=== PATIENT | male | born 1950 | race Caucasian/White ===

== ENCOUNTER 2021-07-26 16:23 | Observation (INO) ==
--- NOTE | 2021-07-26 17:08 | DR.ABDMALE ---
HPI Time seen Time Seen by Provider: 07/26/21 16:42 PCP Primary Care Physician: ELISE Dye HPI comment HPI Comment: According to pt he was well before 2 days ago. experienced pain in the whole belly intermittent .thinks it may have started after drinking punch .pain associated with nausea and vomiting with mild diarrhea non bloody .pt thinks its getting worse. No one at home right now as patients brother who use to live with him has recently . Pt does take opioids for chronic pain .recently switched to oxycodone IR Complaint Chief Complaint Doctors Comments: ABDOMINAL PAIN Chief Complaint:: PT REPORTS THAT HE IS HAVING RUQ PAIN SINCE YESTERDAY WHEN HE DRANK SOME ORANGE GravitantAN PUNCH , ( SHARP PAINS INTERMITTANTLY ) PT REPORT HAVING SOME VOMITING AND BEING UNABLE TO HOLD ANY THING DOWN,BR Self Treatment fo Chief Complaint: NONE COVID-19 Coronavirus risk:travel/contact w/high risk person: No Has patient experienced Coronavirus symptoms: No Reviewed Nurses Notes Review: Yes Mode of arrival Mode of Arrival: Ambulatory Timing Onset of Chief Complaint: 07/25/21 Came on: Gradually Duration Duration: Since Onset Duration: Days Location Location: Diffuse Severity Severity: Moderate Quality Quality: Aching Context Onset: Gradually Modifying factors Worsening Factors: Nothing Improving Factors: Nothing Associated signs and symptoms Associated Signs and Symptoms: Nausea, Vomiting and Diarrhea PMH PMH Past Medical History: Yes Past Medical History: Diabetes and Hypertension Past Surgical History: Yes Surgical History: Angioplasty/Stents and CABG/Valve Surgery Family History History of Family Medical Conditions: No Social History Does patient currently use any type of tobacco product: No Have you used tobacco products in the last 12 months: No Type of Tobacco Use: None Does any household member use tobacco: No Alcohol Use: None Lives With: Family Lives Where: Home Travel Risk Coronavirus risk:travel/contact w/high risk person: No Has patient experienced Coronavirus symptoms: No Infectious screening In the last 2 months have you had wt loss of >10#?: NO Have you had fever, night sweats or hemotysis?: No Have you traveled outside the country in the last 6 months?: No Isolation: Standard ROS Review of Systems Constitutional: No Symptoms Reported Eyes: No Symptoms Reported ENTM: No Symptoms Reported Cardiovascular: No Symptoms Reported Gastrointestinal/Abdominal: See HPI Genitourinary: No Symptoms Reported Neurological: No Symptoms Reported Musculoskeletal: No Symptoms Reported Integumentary: No Symptoms Reported PE Vital Signs Vital Signs: Temp Pulse Resp BP Pulse Ox 07/26/21 18:07 162/74 07/26/21 16:28 98.7 F 72 22 193/93 97 General Limitations: No Limitations Head Head Exam: Normal Inspection, Atraumatic and Normocephalic Eyes Eye exam: Normal Appearance, PERRL and EOMI ENT ENT Exam: Mucous Membranes Moist Neck Neck Exam: Normal Inspection Respiratory Respiratory Exam: Normal Lung Sounds Bilat Respiratory Exam: Bilateral: Clear to Auscultation Cardiovascular Cardiovascular Exam: +S1 and +S2 Abdominal Exam Abdominal Exam: Normal Bowel Sounds, Soft, Tenderness and Other (dull to percuss ) Abdominal Tenderness: Diffuse Rectal Rectal Exam: Deferred Extremeties Extremities Exam: Normal Inspection and Full ROM Skin Skin Exam: Normal Color MDM Differential Diagnosis Differential Diagnosis: Cholelethiasis, Constipation, Diverticular disease, Gastroenteritis and Pancreatitis Other differential diagnosis: abdominal pain COURSE Treatment Treatment: cab ,cmp ,acute abdomen series Consultation Consultation Comments: labs and ct of abdomen and pelvis discussed with surgery .Agreed to admit patient .start zosyn ,fluid ,NPO,blood sugar management and bp spoke with Dr Adams pt will be admitted under his service with surgery on consult ROR Labs Reviewed Laboratory Results Reviewed?: Yes Result Diagrams: 07/26/21 17:05 07/26/21 17:05 Laboratory: WBC 12.7 X10^3/uL (3.6-10.0) H 07/26/21 17:05 RBC 4.92 X10^6/uL (4.7-6.0) 07/26/21 17:05 Hgb 14.7 g/dL (13.5-18.0) 07/26/21 17:05 Hct 44.5 % (42.0-54.0) 07/26/21 17:05 MCV 90.3 fL (80.0-100.0) 07/26/21 17:05 MCH 29.8 pg (27.0-34.0) 07/26/21 17:05 MCHC 33.0 g/dL (33.0-35.0) 07/26/21 17:05 RDW 16.2 % (11.6-16.5) 07/26/21 17:05 Plt Count 109 X10^3/uL (150.0-450.0) L 07/26/21 17:05 Plt Count Comment Decreased (ADEQUATE) 07/26/21 17:05 MPV 9.5 fL (7.4-11.0) 07/26/21 17:05 Neut % (Auto) 95.0 % (42.0-75.0) H 07/26/21 17:05 Lymph % (Auto) 1.9 % (21.0-51.0) L 07/26/21 17:05 [place] % (Auto) 2.6 % (0.0-13.0) 07/26/21 17:05 Eos % (Auto) 0.1 % (0.9-2.9) L 07/26/21 17:05 Baso % (Auto) 0.4 % (0.2-1.0) 07/26/21 17:05 Neut # (Auto) 12.1 x10^3/uL (2.2-4.8) H 07/26/21 17:05 Lymph # (Auto) 0.2 X10^3/uL (1.3-2.9) L 07/26/21 17:05 [place] # (Auto) 0.3 x10^3/uL (0.3-0.8) 07/26/21 17:05 Eos # (Auto) 0.0 x10^3/uL (0.0-0.2) 07/26/21 17:05 Baso # (Auto) 0.0 X10^3/uL (0.0-0.1) 07/26/21 17:05 Absolute Nucleated RBC 0.0 /100WBC 07/26/21 17:05 Total Counted 100 07/26/21 17:05 Neutrophils % (Manual) 86 % (39-76) H 07/26/21 17:05 Band Neutrophils % 3 % (0-10) 07/26/21 17:05 Lymphocytes % (Manual) 4 % (13-43) L 07/26/21 17:05 Monocytes % (Manual) 5 % (4-9) 07/26/21 17:05 Metamyelocytes % 2 07/26/21 17:05 Plt Morphology Comment Normal (NORMAL) 07/26/21 17:05 RBC Morphology Abnormal (NORMAL) 07/26/21 17:05 Anisocytosis Slight A 07/26/21 17:05 Sodium 131 mmol/L (136-145) L 07/26/21 17:05 Corrected Sodium 142 mmol/L (136-145) 07/26/21 17:05 Potassium 4.1 mmol/L (3.5-5.1) 07/26/21 17:05 Chloride 89 mmol/L (98-107) L 07/26/21 17:05 Carbon Dioxide 30.2 mmol/L (21-32) 07/26/21 17:05 BUN 22 mg/dL (7-18) H 07/26/21 17:05 Creatinine 1.78 mg/dL (0.70-1.30) H 07/26/21 17:05 Est GFR (MDRD) Af Amer 49 (>60) L 07/26/21 17:05 Est GFR (MDRD) Non-Af 40 (>60) L 07/26/21 17:05 Glucose 570 mg/dL (65-99) H* 07/26/21 17:05 Calcium 9.2 mg/dL (8.5-10.1) 07/26/21 17:05 Corrected Calcium TNP 07/26/21 17:05 Total Bilirubin 5.50 mg/dL (0.2-1.0) H 07/26/21 17:05 Direct Bilirubin 4.70 mg/dL (0-0.2) H 07/26/21 17:05 AST 483 Units/L (15-37) H 07/26/21 17:05 ALT 493 Units/L (12-78) H 07/26/21 17:05 Alkaline Phosphatase 516 Units/L (46-116) H 07/26/21 17:05 Total Protein 7.4 g/dL (6.4-8.2) 07/26/21 17:05 Albumin 3.7 g/dL (3.4-5.0) 07/26/21 17:05 Globulin 3.7 g/dL (2.5-4.5) 07/26/21 17:05 Albumin/Globulin Ratio 1.0 Ratio (1.1-2.1) L 07/26/21 17:05 Amylase 610 Units/L (25-115) H 07/26/21 17:05 Lipase 2987 Units/L (73-393) H 07/26/21 17:05 SARS CoV-2 RNA Rapid YULIANA Negative (NEGATIVE) 07/26/21 17:53 Opioid Opioid Risk Tool Age (Evaristo box if 16-45): No History of Preadolescent Sexual Abuse: No Total: 0 Total Score Risk Category: Low Risk Copyright: Zain ALVES predicting aberrant behaviors Diagnosis Discharge Problem: Acute gallstone pancreatitis, Abnormal LFTs, Ascending cholangitis Cholelithiasis Qualifiers: Cholelithiasis location: gallbladder Cholecystitis presence: with cholecystitis Cholecystitis acuity: acute Biliary obstruction: without biliary obstruction Qualified Code(s): K80.00 - Calculus of gallbladder with acute cholecystitis without obstruction HTN (hypertension) Qualifiers: Hypertension type: primary hypertension Qualified Code(s): I10 - Essential (primary) hypertension DM (diabetes mellitus), type 2, uncontrolled Qualifiers: Glycemic state: with hyperglycemia Qualified Code(s): E11.65 - Type 2 diabetes mellitus with hyperglycemia Instructions Forms: [facility] Social Distancing
[2021-07-26 17:12] LABS: BASOPHILS % (AUTO) 0.4 % (0.2-1.0); EOSINOPHILS % (AUTO) 0.1 % (0.9-2.9); HEMATOCRIT 44.5 % (42.0-54.0); HEMOGLOBIN 14.7 g/dL (13.5-18.0); LYMPHOCYTES # (AUTO) 0.2 X10^3/uL (1.3-2.9); LYMPHOCYTES % (AUTO) 1.9 % (21.0-51.0); MEAN CORPUSCULAR HEMOGLOBIN 29.8 pg (27.0-34.0); MEAN CORPUSCULAR VOLUME 90.3 fL (80.0-100.0); MEAN PLATELET VOLUME 9.5 fL (7.4-11.0); MONOCYTES # (AUTO) 0.3 x10^3/uL (0.3-0.8); MONOCYTES % (AUTO) 2.6 % (0.0-13.0); NEUTROPHILS # (AUTO) 12.1 x10^3/uL (2.2-4.8); PLATELET COUNT 109 X10^3/uL (150.0-450.0); RED BLOOD COUNT 4.92 X10^6/uL (4.7-6.0); RED CELL DISTRIBUTION WIDTH 16.2 % (11.6-16.5); WHITE BLOOD COUNT 12.7 X10^3/uL (3.6-10.0)
--- NOTE | 2021-07-26 17:26 | RAD ---
HISTORYRUQ PAINSTUDYACUTE ABDOMEN SERIESCOMPARISONNoneFINDINGSAccounting for AP technique and low lung volumes, the cardiac silhouette is enlarged without definite evidence of congestive failure. Previous CABG noted. There are left basilar retrocardiac opacities, which obscure the left hemidiaphragm. Remainder of the lungs are hypoinflated but grossly clear. There is no significant pleural effusion or pneumothorax.The visualized bowel gas pattern is nonobstructive. No definite free air or pneumatosis is identified. No pathologic calcifications seen. Imaged osseous structures are grossly intact.IMPRESSIONCardiomegaly without CHF.Hyperinflation of the lungs and left basilar opacities, which could reflect either atelectasis or pneumonia. Correlate clinically.Nonobstructive bowel gas pattern.Electronically signed by: BRENNEN NGUYỄN (Jul 26, 2021 17:24:53)
[2021-07-26 17:29] LABS: ALANINE AMINOTRANSFERASE 493 Units/L (12-78); ALBUMIN 3.7 g/dL (3.4-5.0); ALKALINE PHOSPHATASE 516 Units/L (46-116); ASPARTATE AMINO TRANSFERASE 483 Units/L (15-37); BLOOD UREA NITROGEN 22 mg/dL (7-18); CALCIUM 9.2 mg/dL (8.5-10.1); CARBON DIOXIDE 30.2 mmol/L (21-32); CHLORIDE 89 mmol/L (98-107); CREATININE 1.78 mg/dL (0.70-1.30); SODIUM 131 mmol/L (136-145); TOTAL PROTEIN 7.4 g/dL (6.4-8.2); eGFR NON BLACK RACES 40 (>60)
[2021-07-26 17:30] LABS: ANISOCYTOSIS SLIGHT; BAND NEUTROPHILS % 3 % (0-10); METAMYELOCYTES % 2; PLATELET MORPHOLOGY COMMENT NORMAL (NORMAL)
[2021-07-26 17:33] LABS: COR NA(FOR HYPERGLY) 142 mmol/L (136-145)
[2021-07-26] MEDS ORDERED: NovoLIN R (or HumuLIN R) SUBCUT STA (17:44)
[2021-07-26 17:46] LABS: AMYLASE 610 Units/L (25-115)
[2021-07-26] MEDS ORDERED: NS 1,000 ML IV 1,000 ML ONE ×2 (17:49→20:51)
[2021-07-26] MEDS ORDERED: NS 1,000 ML IV 1,000 ML IV ONE (17:49)
[2021-07-26] MEDS ORDERED: NovoLIN R (or HumuLIN R) ONE (17:51)
[2021-07-26 18:02] LABS: LIPASE 2987 Units/L (73-393)
--- NOTE | 2021-07-26 19:26 | CT ---
HISTORYELEVATED LIVER ENZYMESSTUDYABDOMEN/PELVIS WITH CONCOMPARISONNoneTECHNIQUEAxial CT images of the abdomen and pelvis were obtained after the administration of IV contrast, 75 mL Omnipaque 350, and reformatted into coronal and sagittal planes for further evaluation.Radiation dose: 844.90 mGy-cm total DLPFINDINGSLung bases are clear.Stomach appears normal.Solid visceral organs of the upper abdomen are unremarkable.Calcified and noncalcified gallstones with mild edema adjacent to the gallbladder wall.No intra or extrahepatic biliary dilatation. Mild enhancement of the extrahepatic biliary ducts.Atherosclerotic changes to the abdominal aorta and iliac vessels without aneurysm.Homogeneous enhancement of the kidneys without hydronephrosis or hydroureter.Unremarkable appearance of the urinary bladder.Imaged reproductive structures are unremarkable.Unremarkable appearance of the large and small bowel.No evidence of acute appendicitis.No pneumoperitoneum.No significant fluid collection.No adenopathy.No acute osseous abnormality.Mild multilevel degenerative disc disease without vertebral body height loss.IMPRESSION1. Gallstones in the gallbladder with mild edema along the margins of the gallbladder wall. Findings could represent cholecystitis.2. Mild nonspecific wall thickening and enhancement of the nondilated extrahepatic biliary ducts. Correlate for signs/symptoms of an ascending biliary tract infection. No choledocholithiasis.Electronically signed by: Timmy Lopes (Jul 26, 2021 19:25:22)
[2021-07-26] MEDS ORDERED: ZOSYN VIAL 3.375 GRAMS 3.375 G in NS 100 ML IV + SPIKE MINIBAG* 100 ML IV STA (20:50)
[2021-07-26] MEDS: NS 1,000 ML IV 1,000 ML IV SCH (20:50)
[2021-07-26] MEDS ORDERED: ZOSYN VIAL 3.375 GRAMS IV ONE (20:53)
[2021-07-26] MEDS ORDERED: NS 100 ML IV + SPIKE MINIBAG* 100 ML IV ONE (20:53)
[2021-07-26] MEDS ORDERED: NORVASC TAB 5 MG ONE (21:58)
[2021-07-26] MEDS: NORVASC TAB 10 MG PO SCH (22:03)
[2021-07-26] MEDS ORDERED: NORVASC TAB 10 MG PO SCH (22:13)
[2021-07-26] MEDS ORDERED: NS 1,000 ML IV 1,000 ML IV SCH (22:13)
[2021-07-26] MEDS ORDERED: NovoLIN R (or HumuLIN R) SC PRN (22:13)
[2021-07-27 02:29] VITALS: BMI 28.6
[2021-07-27] MEDS ORDERED: ZOSYN VIAL 3.375 GRAMS IV ONE (04:49)
[2021-07-27] MEDS ORDERED: NS 100 ML IV + SPIKE MINIBAG* 100 ML IV ONE (04:50)
[2021-07-27] MEDS: NS 1,000 ML IV 1,000 ML IV SCH (05:00)
[2021-07-27] MEDS ORDERED: ZOSYN VIAL 3.375 GRAMS 3.375 G in NS 100 ML IV + SPIKE MINIBAG* 100 ML IV SCH (06:00)
[2021-07-27 06:34] LABS: BASOPHILS % (AUTO) 0.4 % (0.2-1.0); EOSINOPHILS # (AUTO) 0.1 x10^3/uL (0.0-0.2); EOSINOPHILS % (AUTO) 1.6 % (0.9-2.9); HEMATOCRIT 36.2 % (42.0-54.0); LYMPHOCYTES # (AUTO) 0.9 X10^3/uL (1.3-2.9); LYMPHOCYTES % (AUTO) 11.6 % (21.0-51.0); MEAN CORPUSCULAR HEMOGLOBIN 30.1 pg (27.0-34.0); MEAN CORPUSCULAR HGB CONC 34.1 g/dL (33.0-35.0); MEAN CORPUSCULAR VOLUME 88.2 fL (80.0-100.0); MEAN PLATELET VOLUME 9.8 fL (7.4-11.0); MONOCYTES # (AUTO) 0.5 x10^3/uL (0.3-0.8); MONOCYTES % (AUTO) 6.1 % (0.0-13.0); NEUTROPHILS # (AUTO) 6.3 x10^3/uL (2.2-4.8); NEUTROPHILS % (AUTO) 80.3 % (42.0-75.0); PLATELET COUNT 88 X10^3/uL (150.0-450.0); RED CELL DISTRIBUTION WIDTH 16.4 % (11.6-16.5); WHITE BLOOD COUNT 7.9 X10^3/uL (3.6-10.0)
[2021-07-27 06:37] LABS: HEMOGLOBIN 12.4 g/dL (13.5-18.0)
[2021-07-27 06:52] LABS: ALBUMIN 2.8 g/dL (3.4-5.0); CHLORIDE 101 mmol/L (98-107); TOTAL PROTEIN 5.8 g/dL (6.4-8.2)
[2021-07-27 07:36] LABS: ALANINE AMINOTRANSFERASE 332 Units/L (12-78); ALKALINE PHOSPHATASE 364 Units/L (46-116); AMYLASE 79 Units/L (25-115); ASPARTATE AMINO TRANSFERASE 179 Units/L (15-37); BLOOD UREA NITROGEN 15 mg/dL (7-18); CALCIUM 8.3 mg/dL (8.5-10.1); CARBON DIOXIDE 30.7 mmol/L (21-32); COR CA(FOR HYPOALB) 9.3 mg/dL (8.5-10.1); COR NA(FOR HYPERGLY) 141 mmol/L (136-145); CREATININE 1.27 mg/dL (0.70-1.30); LIPASE 95 Units/L (73-393); SODIUM 139 mmol/L (136-145); eGFR NON BLACK RACES 59 (>60)
--- NOTE | 2021-07-27 09:14 | DR.PROGNOT ---
Hospital Progress Notes - Progress Note for Day of: Progress Note Date: 07/27/21 - Chief Complaint Chief Complaint: feeling better this morning with minimal abdominal pain . no vausea or vomiting . no chills or fever .. Amylase /lipase normal this am. Alk phos 364 ..Bilirubin 0.9. CT showed gallstones with cholecystitis - Past Medical Family Social History Past Med/Fam/Surg Hx: No changes since H&P Allergies: Allergies No Known Drug Allergies Allergy (Verified 07/26/21 16:35) - Review Of Systems ROS: No change since H&P - Vital Signs Vital Signs: Temperature 98.2 F Pulse Rate [Right Brachial] 54 Pulse Rate 72 Respiratory Rate 18 Blood Pressure [Right Arm] 158/67 Blood Pressure 162/74 O2 Sat by Pulse Oximetry 96 - Physical Exam Oriented: Normal Eyes: Normal Ear: Normal Nose: Normal Throat: Normal Respiratory: Normal Cardiovascular: Normal : Normal GI:Auscultation: Normal GI:Palpation: Normal GI: Tenderness: RUQ (soft, flat abdomen with moderate epigastric and RUQ tederness . BS + but hypoactive ), Epigastric Speech Pattern: Clear, Appropriate - Laboratory and Diagnostics Result Diagrams: 07/27/21 05:21 07/27/21 05:21 Labs: Laboratory WBC 7.9 X10^3/uL (3.6-10.0) 07/27/21 05:21 RBC 4.10 X10^6/uL (4.7-6.0) L 07/27/21 05:21 Hgb 12.4 g/dL (13.5-18.0) L D 07/27/21 05:21 Hct 36.2 % (42.0-54.0) L 07/27/21 05:21 MCV 88.2 fL (80.0-100.0) 07/27/21 05:21 MCH 30.1 pg (27.0-34.0) 07/27/21 05:21 MCHC 34.1 g/dL (33.0-35.0) 07/27/21 05:21 RDW 16.4 % (11.6-16.5) 07/27/21 05:21 Plt Count 88 X10^3/uL (150.0-450.0) L 07/27/21 05:21 Plt Count Comment Decreased (ADEQUATE) 07/26/21 17:05 MPV 9.8 fL (7.4-11.0) 07/27/21 05:21 Neut % (Auto) 80.3 % (42.0-75.0) H 07/27/21 05:21 Lymph % (Auto) 11.6 % (21.0-51.0) L 07/27/21 05:21 [place] % (Auto) 6.1 % (0.0-13.0) 07/27/21 05:21 Eos % (Auto) 1.6 % (0.9-2.9) 07/27/21 05:21 Baso % (Auto) 0.4 % (0.2-1.0) 07/27/21 05:21 Neut # (Auto) 6.3 x10^3/uL (2.2-4.8) H 07/27/21 05:21 Lymph # (Auto) 0.9 X10^3/uL (1.3-2.9) L 07/27/21 05:21 [place] # (Auto) 0.5 x10^3/uL (0.3-0.8) 07/27/21 05:21 Eos # (Auto) 0.1 x10^3/uL (0.0-0.2) 07/27/21 05:21 Baso # (Auto) 0.0 X10^3/uL (0.0-0.1) 07/27/21 05:21 Absolute Nucleated RBC 0.0 /100WBC 07/27/21 05:21 Total Counted 100 07/26/21 17:05 Neutrophils % (Manual) 86 % (39-76) H 07/26/21 17:05 Band Neutrophils % 3 % (0-10) 07/26/21 17:05 Lymphocytes % (Manual) 4 % (13-43) L 07/26/21 17:05 Monocytes % (Manual) 5 % (4-9) 07/26/21 17:05 Metamyelocytes % 2 07/26/21 17:05 Plt Morphology Comment Normal (NORMAL) 07/26/21 17:05 RBC Morphology Abnormal (NORMAL) 07/26/21 17:05 Anisocytosis Slight A 07/26/21 17:05 Sodium 139 mmol/L (136-145) 07/27/21 05:21 Corrected Sodium 141 mmol/L (136-145) 07/27/21 05:21 Potassium 3.4 mmol/L (3.5-5.1) L 07/27/21 05:21 Chloride 101 mmol/L (98-107) 07/27/21 05:21 Carbon Dioxide 30.7 mmol/L (21-32) 07/27/21 05:21 BUN 15 mg/dL (7-18) 07/27/21 05:21 Creatinine 1.27 mg/dL (0.70-1.30) 07/27/21 05:21 Est GFR (MDRD) Af Amer > 60 (>60) 07/27/21 05:21 Est GFR (MDRD) Non-Af 59 (>60) 07/27/21 05:21 Glucose 196 mg/dL (65-99) H 07/27/21 05:21 POC Glucose (mg/dL) 178 mg/dL (65-99) H 07/27/21 05:40 Calcium 8.3 mg/dL (8.5-10.1) L 07/27/21 05:21 Corrected Calcium 9.3 mg/dL (8.5-10.1) 07/27/21 05:21 Magnesium 1.8 mg/dL (1.7-2.9) 07/27/21 07:15 Total Bilirubin 0.90 mg/dL (0.2-1.0) 07/27/21 05:21 Direct Bilirubin 4.70 mg/dL (0-0.2) H 07/26/21 17:05 AST 179 Units/L (15-37) H 07/27/21 05:21 ALT 332 Units/L (12-78) H 07/27/21 05:21 Alkaline Phosphatase 364 Units/L (46-116) H 07/27/21 05:21 Total Protein 5.8 g/dL (6.4-8.2) L 07/27/21 05:21 Albumin 2.8 g/dL (3.4-5.0) L 07/27/21 05:21 Globulin 3.0 g/dL (2.5-4.5) 07/27/21 05:21 Albumin/Globulin Ratio 0.9 Ratio (1.1-2.1) L 12/12/21 05:21 Amylase 79 Units/L (25-115) 07/27/21 05:21 Lipase 95 Units/L (73-393) 07/27/21 05:21 SARS CoV-2 RNA Rapid YULIANA Negative (NEGATIVE) 07/26/21 17:53 - Assessment and Plan 1: subsiding Gallstone pancreatitis . calculus cholecystitis .. DM, CAD . to advance diet to clear liquid . for lap alejandrina after medical evaluation and clearance .. - Problem Patient Problems: Patient Problems Cholelithiasis (Acute) K80.20 Acute gallstone pancreatitis (Acute) K85.10 Abnormal LFTs (Acute) R79.89 Ascending cholangitis (Acute) K83.09 HTN (hypertension) (Acute) I10 DM (diabetes mellitus), type 2, uncontrolled (Acute) E11.65
[2021-07-27] MEDS: NORVASC TAB 10 MG PO SCH (09:24)
[2021-07-27] MEDS ORDERED: K-DUR TAB 20 MEQ PO PRN (09:25)
[2021-07-27] MEDS ORDERED: MICRO K EXTEN CAP 10 MEQ PO PRN (09:25)
[2021-07-27] MEDS ORDERED: K-RIDER 10 MEQ/NS 100 ML 10 MEQ/100 ML BAG IV PRN (09:25)
[2021-07-27] MEDS ORDERED: POTASSIUM CHL 40 MEQ/NS 0.45% 500 ML IV PRN (09:25)
[2021-07-27] MEDS ORDERED: KLOR-CON PO PRN (09:25)
[2021-07-27] MEDS ORDERED: POTASSIUM CHL 60 MEQ/NS 0.45% 500 ML IV PRN (09:25)
[2021-07-27] MEDS ORDERED: POTASSIUM CHLORIDE LIQ 20 MEQ UDC PO PRN (09:25)
[2021-07-27] MEDS: MAGNESIUM SULFATE 1 GRAM/100 mL PREMIX 1 G/100 ML BAG IV PRN ×2 (10:41→12:13)
[2021-07-27 11:48] VITALS: BP 161/70
--- NOTE | 2021-07-27 14:11 | DR.H&P ---
H&P History & Physical for Day of: H&P Date: 07/26/21 Chief Complaint Chief Complaint: Abdominal Pain Allergies Allergies Allergy/AdvReac Type Severity Reaction Status Date / Time No Known Drug Allergies Allergy Verified 07/26/21 16:35 History of Present Illness History of Present Illness: 70 year old white male with a 2 day history of RUQ intermittent abdominal pain. The pain is briones in nature with 8/10 pain level. He does report associated diarrhea which is non-bloody. No nausea or vomiting at this time. He reports the pain immediately resolved after the ER physician palpated his abdomen yesterday. Work-up in ED revealed the patient had Pancreatitis and elevated LFT's during work-up. CT revealed gallstones. There was also a small leukocytosis upon admission. Past Medical History Past Medical History: Coronary Artery Disease, Diabetes, GERD, Gout and Hypertension Past Surgical History Surgical History: Angioplasty/Stents and CABG/Valve Surgery Social History Does patient currently use any type of tobacco product: No Have you used tobacco products in the last 12 months: No Type of Tobacco Use: None Does any household member use tobacco: No Alcohol Use: None Drug Use: None Medications Home Medications: No Known Drug Allergies Allergy (Verified 07/26/21 16:35) CONTINUE taking the following medications allopurinol 300 mg PO DAILY 07/27/21 [History] amlodipine 5 mg PO DAILY 07/27/21 [History] carvedilol 3.125 mg PO DAILY 07/27/21 [History] digoxin 07/27/21 [History] donepezil [Aricept] 10 mg PO HS 07/27/21 [History] dulaglutide [Trulicity] 1.5 mg SUBCUT WEEKLY 07/27/21 [History] furosemide 40 mg PO BID 07/27/21 [History] gabapentin 30 mg PO TID 07/27/21 [History] hydrocodone-acetaminophen 1 tab PO QID PRN 07/27/21 [History] insulin lispro [Humalog KwikPen Insulin] 18 unit SUBCUT BID 07/27/21 [History] omeprazole 20 mg PO DAILY 07/27/21 [History] potassium chloride 10 meq PO BID 07/27/21 [History] rivaroxaban [Xarelto] 15 mg PO DAILY 07/27/21 [History] ropinirole mg 07/27/21 [History] simvastatin mg 07/27/21 [History] sitagliptin [Januvia] 100 mg PO DAILY 07/27/21 [History] Labs Result Diagrams: 07/27/21 05:21 07/27/21 05:21 Labs: Laboratory WBC 7.9 X10^3/uL (3.6-10.0) 07/27/21 05:21 RBC 4.10 X10^6/uL (4.7-6.0) L 07/27/21 05:21 Hgb 12.4 g/dL (13.5-18.0) L D 07/27/21 05:21 Hct 36.2 % (42.0-54.0) L 07/27/21 05:21 MCV 88.2 fL (80.0-100.0) 07/27/21 05:21 MCH 30.1 pg (27.0-34.0) 07/27/21 05:21 MCHC 34.1 g/dL (33.0-35.0) 07/27/21 05:21 RDW 16.4 % (11.6-16.5) 07/27/21 05:21 Plt Count 88 X10^3/uL (150.0-450.0) L 07/27/21 05:21 Plt Count Comment Decreased (ADEQUATE) 07/26/21 17:05 MPV 9.8 fL (7.4-11.0) 07/27/21 05:21 Neut % (Auto) 80.3 % (42.0-75.0) H 07/27/21 05:21 Lymph % (Auto) 11.6 % (21.0-51.0) L 07/27/21 05:21 [place] % (Auto) 6.1 % (0.0-13.0) 07/27/21 05:21 Eos % (Auto) 1.6 % (0.9-2.9) 07/27/21 05:21 Baso % (Auto) 0.4 % (0.2-1.0) 07/27/21 05:21 Neut # (Auto) 6.3 x10^3/uL (2.2-4.8) H 07/27/21 05:21 Lymph # (Auto) 0.9 X10^3/uL (1.3-2.9) L 07/27/21 05:21 [place] # (Auto) 0.5 x10^3/uL (0.3-0.8) 07/27/21 05:21 Eos # (Auto) 0.1 x10^3/uL (0.0-0.2) 07/27/21 05:21 Baso # (Auto) 0.0 X10^3/uL (0.0-0.1) 07/27/21 05:21 Absolute Nucleated RBC 0.0 /100WBC 07/27/21 05:21 Total Counted 100 07/26/21 17:05 Neutrophils % (Manual) 86 % (39-76) H 07/26/21 17:05 Band Neutrophils % 3 % (0-10) 07/26/21 17:05 Lymphocytes % (Manual) 4 % (13-43) L 07/26/21 17:05 Monocytes % (Manual) 5 % (4-9) 07/26/21 17:05 Metamyelocytes % 2 07/26/21 17:05 Plt Morphology Comment Normal (NORMAL) 07/26/21 17:05 RBC Morphology Abnormal (NORMAL) 07/26/21 17:05 Anisocytosis Slight A 07/26/21 17:05 Sodium 139 mmol/L (136-145) 07/27/21 05:21 Corrected Sodium 141 mmol/L (136-145) 07/27/21 05:21 Potassium 3.4 mmol/L (3.5-5.1) L 07/27/21 05:21 Chloride 101 mmol/L (98-107) 07/27/21 05:21 Carbon Dioxide 30.7 mmol/L (21-32) 07/27/21 05:21 BUN 15 mg/dL (7-18) 07/27/21 05:21 Creatinine 1.27 mg/dL (0.70-1.30) 07/27/21 05:21 Est GFR (MDRD) Af Amer > 60 (>60) 07/27/21 05:21 Est GFR (MDRD) Non-Af 59 (>60) 07/27/21 05:21 Glucose 196 mg/dL (65-99) H 07/27/21 05:21 POC Glucose (mg/dL) 260 mg/dL (65-99) H 07/27/21 12:33 Calcium 8.3 mg/dL (8.5-10.1) L 07/27/21 05:21 Corrected Calcium 9.3 mg/dL (8.5-10.1) 07/27/21 05:21 Magnesium 1.8 mg/dL (1.7-2.9) 07/27/21 07:15 Total Bilirubin 0.90 mg/dL (0.2-1.0) 07/27/21 05:21 Direct Bilirubin 4.70 mg/dL (0-0.2) H 07/26/21 17:05 AST 179 Units/L (15-37) H 07/27/21 05:21 ALT 332 Units/L (12-78) H 07/27/21 05:21 Alkaline Phosphatase 364 Units/L (46-116) H 07/27/21 05:21 Total Protein 5.8 g/dL (6.4-8.2) L 07/27/21 05:21 Albumin 2.8 g/dL (3.4-5.0) L 07/27/21 05:21 Globulin 3.0 g/dL (2.5-4.5) 07/27/21 05:21 Albumin/Globulin Ratio 0.9 Ratio (1.1-2.1) L 07/27/21 05:21 Amylase 79 Units/L (25-115) 07/27/21 05:21 Lipase 95 Units/L (73-393) 07/27/21 05:21 SARS CoV-2 RNA Rapid YULIANA Negative (NEGATIVE) 07/26/21 17:53 Review of Systems Constitutional: Malaise Eyes: No Symptoms Reported ENT: No Symptoms Reported Respiratory: No Symptoms Reported Cardiovascular: No Symptoms Reported Gastrointestinal: Abdominal Pain and Diarrhea; denies No Symptoms Reported, See HPI, Nausea, Vomiting, Constipation, Melena, Hematochezia and Other Genitourinary: No Symptoms Reported Musculoskeletal: No Symptoms Reported Skin: No Symptoms Reported Neurological: No Symptoms Reported Physical Exam Vital Signs: Temperature 98.6 F Pulse Rate [Right Brachial] 51 Pulse Rate 72 Respiratory Rate 20 Blood Pressure [Right Arm] 161/70 Blood Pressure 162/74 O2 Sat by Pulse Oximetry 96 Oriented: Normal Eyes: Normal Ear: Normal Nose: Normal Throat: Normal Respiratory: Clear Throughout Cardiovascular: Normal : Normal Auscultation: Bowel Sounds: Normal Palpation: Normal Tenderness: RUQ Skin: Normal Musculoskeletal: Normal Psychiatric: Normal Mood Description: Calm Affect: Normal Speech Pattern: Clear Assessment/Plan (1) Cholelithiasis: Qualifiers: Biliary obstruction: without biliary obstruction Cholecystitis acuity: acute Cholecystitis presence: with cholecystitis Cholelithiasis location: gallbladder Qualified Code(s): K80.00 - Calculus of gallbladder with acute cholecystitis without obstruction Status: Acute (2) Acute gallstone pancreatitis: Status: Acute Plan: Consult Gen Surgery. (3) Abnormal LFTs: Status: Acute Plan: Repeat LFT's in am. (4) HTN (hypertension): Qualifiers: Hypertension type: primary hypertension Qualified Code(s): I10 - E ssential (primary) hypertension Status: Acute (5) DM (diabetes mellitus), type 2, uncontrolled: Qualifiers: Glycemic state: with hyperglycemia Qualified Code(s): E11.65 - Type 2 diabetes mellitus with hyperglycemia Status: Acute (6) CAD (coronary artery disease) of artery bypass graft: Status: Acute Review H&P Reviewed: Yes Patient was examined?: Yes
--- NOTE | 2021-07-27 14:40 | PCM.DCPLAN ---
DISCHARGE SUMMARY Admission Date Date of Admission: 07/26/21 Discharge Date Discharge Date: 07/27/21 Admission Diagnoses (1) Cholelithiasis: Status: Acute (2) Acute gallstone pancreatitis: Status: Acute (3) Abnormal LFTs: Status: Acute (4) HTN (hypertension): Status: Acute (5) DM (diabetes mellitus), type 2, uncontrolled: Status: Acute (6) CAD (coronary artery disease) of artery bypass graft: Status: Acute (7) Cholecystitis: Status: Acute Discharge Diagnoses Discharge Diagnosis: 1. Gallstone Pancreatitis resolved 2. CAD with hx of 6 vessel CABG 3. Abnormal LFT's improved 4. Cholelithiasis 5. Hypokalemia 6. Hypomagnesemia 7. HTN Discharge Medications Discharge Medications: Home Medication List allopurinol 300 mg PO DAILY 07/27/21 [History] amlodipine 5 mg PO DAILY 07/27/21 [History] carvedilol 3.125 mg PO DAILY 07/27/21 [History] digoxin 07/27/21 [History] donepezil [Aricept] 10 mg PO HS 07/27/21 [History] dulaglutide [Trulicity] 1.5 mg SUBCUT WEEKLY 07/27/21 [History] furosemide 40 mg PO BID 07/27/21 [History] gabapentin 30 mg PO TID 07/27/21 [History] hydrocodone-acetaminophen 1 tab PO QID PRN 07/27/21 [History] insulin lispro [Humalog KwikPen Insulin] 18 unit SUBCUT BID 07/27/21 [History] omeprazole 20 mg PO DAILY 07/27/21 [History] potassium chloride 10 meq PO BID 07/27/21 [History] rivaroxaban [Xarelto] 15 mg PO DAILY 07/27/21 [History] ropinirole mg 07/27/21 [History] simvastatin mg 07/27/21 [History] sitagliptin [Januvia] 100 mg PO DAILY 07/27/21 [History] Prescriptions: Hospital Course Vital Signs: Temperature 98.6 F Pulse Rate [Right Brachial] 51 Pulse Rate 72 Respiratory Rate 20 Blood Pressure [Right Arm] 161/70 Blood Pressure 162/74 O2 Sat by Pulse Oximetry 96 Latest Lab Results: Laboratory Last Values WBC 7.9 X10^3/uL (3.6-10.0) 07/27/21 05:21 RBC 4.10 X10^6/uL (4.7-6.0) L 07/27/21 05:21 Hgb 12.4 g/dL (13.5-18.0) L D 07/27/21 05:21 Hct 36.2 % (42.0-54.0) L 07/27/21 05:21 MCV 88.2 fL (80.0-100.0) 07/27/21 05:21 MCH 30.1 pg (27.0-34.0) 07/27/21 05:21 MCHC 34.1 g/dL (33.0-35.0) 07/27/21 05:21 RDW 16.4 % (11.6-16.5) 07/27/21 05:21 Plt Count 88 X10^3/uL (150.0-450.0) L 07/27/21 05:21 Plt Count Comment Decreased (ADEQUATE) 07/26/21 17:05 MPV 9.8 fL (7.4-11.0) 07/27/21 05:21 Neut % (Auto) 80.3 % (42.0-75.0) H 07/27/21 05:21 Lymph % (Auto) 11.6 % (21.0-51.0) L 07/27/21 05:21 [place] % (Auto) 6.1 % (0.0-13.0) 07/27/21 05:21 Eos % (Auto) 1.6 % (0.9-2.9) 07/27/21 05:21 Baso % (Auto) 0.4 % (0.2-1.0) 07/27/21 05:21 Neut # (Auto) 6.3 x10^3/uL (2.2-4.8) H 07/27/21 05:21 Lymph # (Auto) 0.9 X10^3/uL (1.3-2.9) L 07/27/21 05:21 [place] # (Auto) 0.5 x10^3/uL (0.3-0.8) 07/27/21 05:21 Eos # (Auto) 0.1 x10^3/uL (0.0-0.2) 07/27/21 05:21 Baso # (Auto) 0.0 X10^3/uL (0.0-0.1) 07/27/21 05:21 Absolute Nucleated RBC 0.0 /100WBC 07/27/21 05:21 Total Counted 100 07/26/21 17:05 Neutrophils % (Manual) 86 % (39-76) H 07/26/21 17:05 Band Neutrophils % 3 % (0-10) 07/26/21 17:05 Lymphocytes % (Manual) 4 % (13-43) L 07/26/21 17:05 Monocytes % (Manual) 5 % (4-9) 07/26/21 17:05 Metamyelocytes % 2 07/26/21 17:05 Plt Morphology Comment Normal (NORMAL) 07/26/21 17:05 RBC Morphology Abnormal (NORMAL) 07/26/21 17:05 Anisocytosis Slight A 07/26/21 17:05 Sodium 139 mmol/L (136-145) 07/27/21 05:21 Corrected Sodium 141 mmol/L (136-145) 07/27/21 05:21 Potassium 3.4 mmol/L (3.5-5.1) L 07/27/21 05:21 Chloride 101 mmol/L (98-107) 07/27/21 05:21 Carbon Dioxide 30.7 mmol/L (21-32) 07/27/21 05:21 BUN 15 mg/dL (7-18) 07/27/21 05:21 Creatinine 1.27 mg/dL (0.70-1.30) 07/27/21 05:21 Est GFR (MDRD) Af Amer > 60 (>60) 07/27/21 05:21 Est GFR (MDRD) Non-Af 59 (>60) 07/27/21 05:21 Glucose 196 mg/dL (65-99) H 07/27/21 05:21 POC Glucose (mg/dL) 260 mg/dL (65-99) H 07/27/21 12:33 Calcium 8.3 mg/dL (8.5-10.1) L 07/27/21 05:21 Corrected Calcium 9.3 mg/dL (8.5-10.1) 07/27/21 05:21 Magnesium 1.8 mg/dL (1.7-2.9) 07/27/21 07:15 Total Bilirubin 0.90 mg/dL (0.2-1.0) 07/27/21 05:21 Direct Bilirubin 4.70 mg/dL (0-0.2) H 07/26/21 17:05 AST 179 Units/L (15-37) H 07/27/21 05:21 ALT 332 Units/L (12-78) H 07/27/21 05:21 Alkaline Phosphatase 364 Units/L (46-116) H 07/27/21 05:21 Total Protein 5.8 g/dL (6.4-8.2) L 07/27/21 05:21 Albumin 2.8 g/dL (3.4-5.0) L 07/27/21 05:21 Globulin 3.0 g/dL (2.5-4.5) 07/27/21 05:21 Albumin/Globulin Ratio 0.9 Ratio (1.1-2.1) L 07/27/21 05:21 Amylase 79 Units/L (25-115) 07/27/21 05:21 Lipase 95 Units/L (73-393) 07/27/21 05:21 SARS CoV-2 RNA Rapid [place] Negative (NEGATIVE) 07/26/21 17:53 Hospital Course: The moring after admission the patient was feeling much better. His abdominal pain has not returned since last night after his abdominal exam. I suspect he passed a gallstone at that time. He does report this morning that he saw his care process manager, Dr. Gonzalez Sheridan earlier this week and he is scedulig him for cardiac testing in the very near future. The patient is a poor historian and cannot recolct his last cardiac evaluation. I advised him to have that done before he has a Cholecystectomy done. He is to high a risk for surgery until his cardiac evaluation reveals otherwise. His LFT's have come down but are still elevated. He ate lunch today without any problem or pain. He will be discharged home today in stable condition and will be instructed to follow up with his PCP. We will send his PCP Hospital records and if he wishes at a later date to have his surgery we will get his an appointment with General Surgeon Dr. Olsen. Instructions Forms: [facility] Social Distancing Excuse From Work or School Precautions for COVID19
== END 2021-07-27 15:15 | disposition home or self-care (01) ==
LOC: ER 16:23 → MED/SURG 21:58 → INTOOBSV 21:58 → MED/SURG 22:30
PROVIDERS: ADMIT Family Medicine; ATTEND Family Medicine
DX: K85.10 Biliary acute pancreatitis without necrosis or infection; K21.9 Gastro-esophageal reflux disease without esophagitis; R94.5 Abnormal results of liver function studies; I10 Essential (primary) hypertension; R10.11 Right upper quadrant pain; R79.89 Other specified abnormal findings of blood chemistry; Z20.822 Contact with and (suspected) exposure to COVID-19; R94.31 Abnormal electrocardiogram [ECG] [EKG]; K80.00 Calculus of gallbladder with acute cholecystitis without obstruction